=== PATIENT | female | born 1995 | race African-American/Black ===

== ENCOUNTER 2021-05-27 21:15 | Emergency (ER) | payer SELFPAY ==
[2021-05-27] MEDS ORDERED: Lidocaine 1% w/Epinephrine 1:100K 20 ML VIAL ONE (21:49)
== END 2021-05-27 23:01 | disposition home or self-care (01) ==
LOC: CSHERS 21:15
DX: L05.01 Pilonidal cyst with abscess (principal); I10 Essential (primary) hypertension; F17.210 Nicotine dependence, cigarettes, uncomplicated
CPT/HCPCS: 10080

== ENCOUNTER 2021-06-19 20:31 | Emergency (ER) | payer SELFPAY ==
[2021-06-19] MEDS ORDERED: Lidocaine 1% w/Epinephrine 1:100K 20 ML VIAL ONE (21:08)
== END 2021-06-19 21:45 | disposition home or self-care (01) ==
LOC: CSHERS 20:31
DX: L05.01 Pilonidal cyst with abscess (principal); F17.210 Nicotine dependence, cigarettes, uncomplicated; I10 Essential (primary) hypertension; Z79.899 Other long term (current) drug therapy
CPT/HCPCS: 10080

== ENCOUNTER 2022-01-02 21:26 | Emergency (ER) | payer SELFPAY ==
[2022-01-02] MEDS ORDERED: Acetaminophen 500 MG TAB ONE (22:00)
[2022-01-02 22:24] LABS: Bilirubin Neg (Negative); Blood, Urine 10 (Negative); Clarity Slightly Cloudy (Clear); Glucose, Urine (Dipstick) Normal (Negative); Ketone, Urine Negative (Negative); Leukocyte 100 (Negative); Nitrite Negative (Negative); Protein, Urine (Dipstick) Negative (Neg-Trace); Urobilinogen Normal mg/dL (Less than 2)
[2022-01-02 22:26] LABS: Pregnancy Test - Urine (BHCG) Negative (Negative); Pregu Control Background? CLEAR/WHITE (CLR/WHITE); Pregu Control Bar Appear? YES (CONTROL BAR)
[2022-01-02 22:39] LABS: Bacteria/HPF 2+ HPF (None Seen); RBC/HPF 0-3 HPF (0-3); Trichomonas/HPF Rare HPF (None Seen)
[2022-01-04 15:14] LABS: Chlam.trachomatis by PCR,Urine Not Detected (NotDetected)
== END 2022-01-02 23:30 | disposition home or self-care (01) ==
LOC: CSHERS 21:26
DX: U07.1 COVID-19 (principal); A59.9 Trichomoniasis, unspecified; F17.210 Nicotine dependence, cigarettes, uncomplicated; I10 Essential (primary) hypertension
CPT/HCPCS: 81003; 81015; 81025; 87491; 87591; 87804; 99283; U0003; U0005

== ENCOUNTER 2025-06-07 18:13 | Emergency (ER) | payer SELFPAY ==
[2025-06-08 04:46] LABS: Chlamydia by PCR, Vaginal Swab Not Detected (NotDetected); GC by PCR, Vaginal Swab Not Detected (NotDetected)
== END 2025-06-07 21:17 | disposition home or self-care (01) ==
LOC: CSHERS 18:13
DX: S00.83XA Contusion of other part of head, initial encounter (principal); T19.2XXA Foreign body in vulva and vagina, initial encounter; I10 Essential (primary) hypertension; F17.210 Nicotine dependence, cigarettes, uncomplicated; W44.8XXA Other foreign body entering into or through a natural orifice, initial encounter
CPT/HCPCS: 70450; 70486; 87480; 87491; 87510; 87591; 87660